=== PATIENT | male | born 1990 | race African-American/Black ===

== ENCOUNTER 2021-12-26 14:56 | Emergency (ER) | payer OTHER ==
[~2021-12-26] VITALS: Ht 182.9 cm; Wt 118.2 kg
[~2021-12-26 14:56] MED LIST: NO HOME MEDICATIONS
[2021-12-26 15:17] VITALS: TEMP 98.2
[2021-12-26 17:00] VITALS: BP 132/81; PULSE 66
== END 2021-12-26 17:03 | disposition home or self-care (01) ==
LOC: COL.ER 14:56
DX: R07.89 Other chest pain (principal)